=== PATIENT | male | born 1995 | race Hispanic/Latino ===

== ENCOUNTER 2019-11-05 13:22 | Emergency (ER) | payer OTHER ==
[2019-11-05] MEDS ORDERED: TETANUS/DIPHTHERIA TOXOID [ADULT] 0.5 ML VIAL IM ONE (13:34)
[2019-11-05] MEDS ORDERED: OCTYL 2-CYANOACRYLATE 1 EACH TP ONE (13:43)
== END 2019-11-05 15:02 | disposition home or self-care (01) ==
LOC: EDH 13:22
DX: S61.412A Laceration without foreign body of left hand, initial encounter (principal); W26.0XXA Contact with knife, initial encounter; Y93.89 Activity, other specified; Y92.098 Other place in other non-institutional residence as the place of occurrence of the external cause; Y99.8 Other external cause status
CPT/HCPCS: 12041; 73130; 90471; 90714